=== PATIENT | male | born 1985 | race Caucasian/White ===

== ENCOUNTER 2019-07-17 14:41 | Emergency (ER) | payer MEDICAID ==
[~2019-07-17] VITALS: Ht 172.7 cm; Wt 117.9 kg
--- NOTE | 2019-07-17 15:14 | NUR ---
PT IS IN ROOM #1B. DR MORA EVALUATED THE PT.
[2019-07-17] MEDS ORDERED: LIDOCAINE VISCUS 2% 15 ML UDC MM ONE (15:15)
[2019-07-17] MEDS ORDERED: PANTOPRAZOLE SODIUM 40 MG VIAL IV ONE (15:15)
[2019-07-17] MEDS ORDERED: ONDANSETRON 4 MG/2 ML VIAL IV ONE (15:15)
[2019-07-17] MEDS ORDERED: MAG HYDROX/AL HYDROX/SIMETH 30 ML LIQUID UDC PO ONE (15:15)
[2019-07-17 15:29] LABS: BASOPHILS % (AUTO) 0.5 % (0.0-2.0); EOSINOPHILS # (AUTO) 0.4 K/uL (0.0-0.7); EOSINOPHILS % (AUTO) 3.8 % (0.0-7.0); HEMATOCRIT 45.2 % (36.7-47.1); HEMOGLOBIN 15.8 g/dL (12.5-16.3); LYMPHOCYTES # (AUTO) 1.9 K/uL (20.0-40.0); LYMPHOCYTES % (AUTO) 20.2 % (20.5-51.5); MEAN CORPUSCULAR HEMOGLOBIN 32.6 uug (23.8-33.4); MEAN CORPUSCULAR HGB CONC 35 g/dL (32.5-36.3); MEAN CORPUSCULAR VOLUME 93.4 fL (73.0-96.2); MONOCYTES # (AUTO) 0.9 K/uL (2.0-10.0); MONOCYTES % (AUTO) 9.1 % (0.0-11.0); NEUTROPHILS # (AUTO) 6.2 K/uL (1.8-8.9); NEUTROPHILS % (AUTO) 66.4 % (38.5-71.5); PLATELET COUNT (AUTO) 268 K/uL (152-348); RED BLOOD CELL COUNT(AUTO) 4.84 MIL/uL (4.06-5.63); WHITE BLOOD COUNT (AUTO) 9.3 K/uL (3.6-10.2)
[2019-07-17] MEDS ORDERED: MAG HYDROX/AL HYDROX/SIMETH 30 ML LIQUID UDC ONE (15:29)
[2019-07-17] MEDS ORDERED: PANTOPRAZOLE SODIUM 40 MG VIAL ONE (15:30)
[2019-07-17] MEDS ORDERED: LIDOCAINE VISCUS 2% 15 ML UDC ONE (15:30)
[2019-07-17] MEDS ORDERED: ONDANSETRON 4 MG/2 ML VIAL ONE (15:30)
[2019-07-17 15:38] LABS: CREATININE 0.8 mg/dL (0.6-1.3); POTASSIUM 3.6 mmol/L (3.5-5.1)
[2019-07-17 15:44] LABS: BILIRUBIN,DIRECT 0.2 mg/dL (0.0-0.2); BILIRUBIN,TOTAL 0.7 mg/dL (0.2-1.0); TOTAL PROTEIN, SERUM 7.9 g/dL (6.4-8.2)
--- NOTE | 2019-07-17 16:24 | NUR ---
pt was d/c'D to home. d/c instructions given to the pt.
[2019-07-17 16:27] VITALS: BP 149/91
== END 2019-07-17 16:27 | disposition home or self-care (01) ==
LOC: ER 14:41
DX: K29.70 Gastritis, unspecified, without bleeding (principal); K12.1 Other forms of stomatitis; F17.210 Nicotine dependence, cigarettes, uncomplicated; Z90.49 Acquired absence of other specified parts of digestive tract
CPT/HCPCS: 36415; 80048; 80076; 83690; 85025; 96374; 96375; 99283; C9113; J2405; A4663; J7030